=== PATIENT | female | born 1960 | race Hispanic/Latino ===

== ENCOUNTER → 2021-12-11 | Outpatient (CLI) | payer MEDICARE ==
[~2021-12-11] MED LIST: IOHEXOL 350 MG/ML 100ML INFUS..BTL IV ONE
== END | disposition home or self-care (01) ==
LOC: RAH 08:47
PROVIDERS: ATTEND Internal Medicine
DX: M43.02 Spondylolysis, cervical region (principal); R20.2 Paresthesia of skin
CPT/HCPCS: 72130; 72127; Q9967